=== PATIENT | female | born 1955 | race Caucasian/White ===

== ENCOUNTER 2016-11-05 08:36 | Emergency (ER) | payer OTHER ==
[~2016-11-05] VITALS: Wt 61.8 kg
[~2016-11-05 08:36] MED LIST: ALBU8.5H5 INH; ATOR10TA65 PO; CEPH500C PO; HYD25 PO; LISI20TA11 PO; METF-382 PO; RANI150T5 PO
[2016-11-05] MEDS ORDERED: traMADol 50 MG TAB PO ONE (09:00)
--- NOTE | 2016-11-05 09:13 | ERD ---
ER Documentation Chief Complaint Date/Time DATE: 11/05/16 TIME: 09:11 Chief Complaint right side non traumatic neckpain for the past 5 mos getting worse HPI 61-year-old female with history of thyroid disease comes to the ER with right- sided neck pain for the past 5 months. Patient's pain starts in the C5 region and radiates to the right anterior shoulder,, sharp, moderate, she is here with her daughter who states that she attends a lot of time knitting and keeps her legs. She has not had any trauma, fevers or neck stiffness or rashes associated. They do report some improvement with ibuprofen and Tylenol but because of her pain for the last 5 months he were looking to get a secondary evaluation. ROS All systems reviewed and are negative except as per history of present illness. Medications Home Meds Active Scripts Cephalexin* (Cephalexin*) 500 Mg Capsule, 500 MG PO TID , #21 CAP Prov:CR WOODARD MD 05/07/15 Ranitidine Hcl* (Ranitidine Hcl*) 150 Mg Tablet, 150 MG PO BID, #180 TAB Prov:CR WOODARD MD 05/07/15 Albuterol Sulfate* (Albuterol Sulfate* HFA) 8.5 Gm Hfa.aer.ad, 1-2 PUFF INH Q4 Y for SHORTNESS OF BREATH, #2 EA Prov:CR WOODARD MD 05/07/15 Reported Medications Hydrochlorothiazide* (Hydrochlorothiazide*) 25 Mg Tab, 25 MG PO DAILY, TAB 05/06/15 Atorvastatin Calcium (Atorvastatin Calcium) 10 Mg Tab, 10 MG PO HS, TAB 05/06/15 Metformin Hcl* (Metformin Hcl*) 500 Mg Tablet, 500 MG PO BID WITH MEALS, TAB 05/06/15 Lisinopril* (Lisinopril*) 20 Mg Tablet, 20 MG PO DAILY, TAB 05/06/15 Allergies Allergies: Coded Allergies: No Known Allergy (Unverified , 05/07/15) PMhx/Soc History of Surgery: Yes (VEINS STRIPPED) Anesthesia Reaction: No Hx Neurological Disorder: No Hx Respiratory Disorders: No Hx Cardiac Disorders: Yes (HIGH BP,HIGH CHOL) Hx Psychiatric Problems: No Hx Miscellaneous Medical Probl: No Hx Alcohol Use: No Hx Substance Use: No Hx Tobacco Use: No Physical Exam Vitals Vital Signs Date Time Temp Pulse Resp B/P Pulse Ox O2 Delivery O2 Flow Rate FiO2 11/05/16 08:39 98.0 74 20 148/71 100 Physical Exam General: Well-developed, well-nourished. The patient appears in no acute distress. HEENT: Head is normocephalic, atraumatic. No scleral icterus. Pupils are equal , round, and reactive. Oral mucous membranes are moist. No pharyngeal erythema. Neck: Supple. No thyroid masses, no thyromegaly, no lymphadenopathy. Tender at the C5 and reproducible pain in the right shoulder Lungs: Clear to auscultation. Normal air movement. Heart: Regular rate and rhythm. S1 and S2 are normal. No murmurs, gallops, or rubs. Abdomen: Soft, nontender, nondistended. Bowel sounds are normoactive. Extremities: No clubbing or cyanosis. Normal pulses. Moving extremities x 4. No weakness. Neurologic: Alert and oriented 3. No focal deficits. Skin: Normal turgor. No rash or lesions. Results 24 hrs Current Medications Medications (Trade) Dose Ordered Sig/Felicia Route PRN Reason Start Time Stop Time Status Last Admin Dose Admin Tramadol HCl (Ultram) 50 mg ONCE ONCE PO 11/05/16 09:00 11/05/16 09:01 11/05/16 09:23 PROCEDURE: XR Cervical Spine. CLINICAL INDICATION: Neck pain TECHNIQUE: AP, lateral, and open mouth views of the cervical spine were obtained. COMPARISON: None FINDINGS: The C1-C7 vertebral bodies are seen. The cervical lordosis is maintained. The vertebral body and disk space heights are normal. Multiple endplate and uncovertebral osteophytes are seen. No acute fracture or subluxation is seen. The atlantoaxial joint, odontoid process, and lateral masses are intact. No prevertebral soft tissue abnormality is seen. IMPRESSION: Mild multilevel discogenic disease of the cervical spine. RPTAT: HPNM Physician Benito Date Time Electronically viewed and signed by Kosta Wilson Physician on 11/05/2016 09 :51 Procedures/MDM ED course: She was given tramadol for pain. MDM: 60-year-old female comes in with neck pain is consistent with C5 radiculopathy. Differentials include fracture, subluxation, brachial plexus injury, neuropraxia, shoulder injury, rotator cuff tendinitis, calcific tendinosis and among others were part of my differential diagnosis. Patient has a normal x-ray, there is multi-level degenerative changes. She was advised to follow-up with her primary care physician and patient regarding physical therapy referral. Departure Diagnosis: Primary Impression: Neck pain Condition: Good REYMUNDO CHRISTOPHER PA-C Nov 05, 2016 09:13
--- NOTE | 2016-11-05 09:52 | RADRPT ---
PROCEDURE: XR Cervical Spine. CLINICAL INDICATION: Neck pain TECHNIQUE: AP, lateral, and open mouth views of the cervical spine were obtained. COMPARISON: None FINDINGS: The C1-C7 vertebral bodies are seen. The cervical lordosis is maintained. The vertebral body and d isk space heights are normal. Multiple endplate and uncovertebral osteophytes are seen. No acute fra cture or subluxation is seen. The atlantoaxial joint, odontoid process, and lateral masses are inta ct. No prevertebral soft tissue abnormality is seen. IMPRESSION: Mild multilevel discogenic disease of the cervical spine. RPTAT: HPNM Physician Benito Date Time Electronically viewed and signed by Physician Benito on 11/05/2016 09:51 /
[2016-11-05] MEDS ORDERED: TRAM50TA2 PO (10:29)
[2016-11-05 10:32] VITALS: BP 132/75; PULSE 76; RESP 20; TEMP 98.4
== END 2016-11-05 10:51 | disposition home or self-care (01) ==
LOC: FTE 08:36
DX: M54.2 Cervicalgia (principal); E11.9 Type 2 diabetes mellitus without complications; Z79.84 Long term (current) use of oral hypoglycemic drugs
CPT/HCPCS: 72040; Z7610

== ENCOUNTER 2017-09-02 08:07 | Emergency (ER) | payer SELFPAY ==
[~2017-09-02] VITALS: Ht 152.4 cm; Wt 56.0 kg
[~2017-09-02 08:07] MED LIST changes: -HYD25 PO; +HYDR25TA6 PO; -METF-382 PO; +METF500T4 PO; +TRAM50TA2 PO
[2017-09-02 08:11] VITALS: Ht 152.4 cm; Wt 56.0 kg
--- NOTE | 2017-09-02 08:22 | ERD ---
ER Documentation Chief Complaint Chief Complaint Complains of back pain x 3 day HPI 62y/o female with history of chronic neck pain presents to the ED c/o acute onset of upper back pain 2 weeks ago, worse on the right side. Pain is sharp, constant, 6/10, worsened by lateral rotation and bending forward. Treatment attempted: Tramadol with mild improvement of the symptoms. No recent history of trauma. Previous evaluations: According to the patient she was diagnosed with arthrosis. Currently, denies limb weakness, numbness or incontinence. No urinary symptoms. No headache, no fever, no chills, no rashes. ROS A 12-point review of systems was performed and negative other than presented in the history of present illness. SYSTEMIC symptoms: no fever, chills, no night sweats, no weight loss EYE symptoms: No blurred vision, no eye discharge OTOLARYNGEAL symptoms: No hearing loss. No ear pain, no sore throat CARDIOVASCULAR symptoms: No chest pain or discomfort, no palpitations. PULMONARY symptoms: No dyspnea, no cough, no wheezing. GASTROINTESTINAL symptoms: No abdominal pain, no nausea, no vomiting, no diarrhea MUSCULOSKELETAL symptoms: Per HPI NEUROLOGY symptoms: No confusion, no syncope, no numbness or tingling. SKIN: No rashes Medications Home Meds Active Scripts Lidocaine (Lidocaine) 1 Each Adh..patch, 1 EACH TP DAILY for PAIN LEVEL 6-10, # 14 Prov:JEANNIE SHAIKH MD 09/02/17 Prednisone* (Prednisone*) 20 Mg Tab, 20 MG PO DAILY for 5 Days, TAB Prov:JEANNIE SHAIKH MD 09/02/17 Baclofen* (Baclofen*) 10 Mg Tablet, 5 MG PO QHS for MUSCLE SPASMS, #20 TAB Prov:JEANNIE SHAIKH MD 09/02/17 Tramadol HCl (Tramadol HCl) 50 Mg Tablet, 50 MG PO Q4 Y for PAIN, #20 TAB Prov:REYMUNDO CHRISTOPHER PA-C 11/05/16 Cephalexin* (Cephalexin*) 500 Mg Capsule, 500 MG PO TID , #21 CAP Prov:CR WOODARD MD 05/07/15 Ranitidine Hcl* (Ranitidine Hcl*) 150 Mg Tablet, 150 MG PO BID, #180 TAB Prov:CR WOODARD MD 05/07/15 Albuterol Sulfate* (Albuterol Sulfate* HFA) 8.5 Gm Hfa.aer.ad, 1-2 PUFF INH Q4 Y for SHORTNESS OF BREATH, #2 EA Prov:CR WOODARD MD 05/07/15 Reported Medications Hydrochlorothiazide* (Hydrochlorothiazide*) 25 Mg Tab, 25 MG PO DAILY, TAB 05/06/15 Atorvastatin Calcium (Atorvastatin Calcium) 10 Mg Tab, 10 MG PO HS, TAB 05/06/15 Metformin Hcl* (Metformin Hcl*) 500 Mg Tablet, 500 MG PO BID WITH MEALS, TAB 05/06/15 Lisinopril* (Lisinopril*) 20 Mg Tablet, 20 MG PO DAILY, TAB 05/06/15 Allergies Allergies: Coded Allergies: No Known Allergy (Unverified , 05/07/15) PMhx/Soc History of Surgery: Yes (VEINS STRIPPED) Anesthesia Reaction: No Hx Neurological Disorder: No Hx Respiratory Disorders: No Hx Cardiac Disorders: Yes (HIGH BP,HIGH CHOL) Hx Psychiatric Problems: No Hx Miscellaneous Medical Probl: No Hx Alcohol Use: No Hx Substance Use: No Hx Tobacco Use: No Physical Exam Vitals Vital Signs Date Time Temp Pulse Resp B/P Pulse Ox O2 Delivery O2 Flow Rate FiO2 09/02/17 08:11 98.3 70 20 172/70 98 Physical Exam Patient is in no acute distress, vital signs stable. Alert and fully oriented. EYES: PERRLA, EOMI, Sclera and conjunctiva appear normal. EARS: Canals clear, tympanic membranes WNL THROAT: Normal oropharynx. NECK: Supple, No lymphadenopathy. Full ROM without pain or tenderness. HEART: RRR, no rubs, murmurs, clicks or gallops. LUNGS: Clear to auscultation. ABDOMEN: Soft, non-tender without masses or hepatosplenomegaly. EXTREMITIES: No edema bilaterally. BACK: Cervical: Normal inspection, no vertebral tenderness, bilateral muscle spasm, worse on the right side. Decreased range of motion for lateral rotation and flexion. NEURO: Cranial nerves grossly intact, no motor or sensory deficit Results 24 hrs Current Medications Medications (Trade) Dose Ordered Sig/Felicia Route PRN Reason Start Time Stop Time Status Last Admin Dose Admin Ketorolac Tromethamine (Toradol) 30 mg ONCE STAT IM 09/02/17 08:30 09/02/17 08:32 DC 09/02/17 08:37 Procedures/MDM Upper back pain: no red flags. Differential diagnosis include but not limited to : Neck sprain/strain, herniated disk, muscle spasm, radiculopathy. Neurovascular exam grossly intact. no clinical findings suggestive of acute infectious process, no acute deformity, no edema, no rashes. Physical examination and clinical presentation consistent most likely with acute on chronic back pain with sciatica. During the ED course the patient received treatment with Toradol IM presenting overall improvement of the symptoms. Results and clinical impression discussed with recent who agrees with management. The patient is stable to be treated outpatient and will be discharged home with recommendations and close monitoring The patient was instructed to follow up with the primary care provider in the next 48h. If symptoms persist, worsen or new symptoms develop, then patient should return to the ED immediately. Instructions explained and given to patient in Japanese with acknowledgment and demonstrated understanding. Disclaimer: Inadvertent spelling and grammatical errors are likely due to EHR/ dictation software use and do not reflect on the overall quality of patient care. Also, please note that the electronic time recorded on this note does not necessarily reflect the actual time of the patient encounter. Departure Diagnosis: Primary Impression: Chronic neck pain Additional Impression: Acute muscle stiffness of neck Condition: Stable Additional Instructions: Call your primary care doctor TOMORROW for an appointment during the next 1-2 days. See the doctor sooner or return here if your condition worsens before your appointment time. Thank you very much for allowing us to participate in your care. Your health and safety is our top priority at [facility]. Have prescriptions filled and follow precisely the directions on the label. Follow-up with primary care provider during the next 4 days and bring all the information and medications prescribed. If illness has not improved in 2 days, then make an appointment with primary care provider. If the provider is unavailable, return to the Emergency Department immediately. JEANNIE SHAIKH MD Sep 02, 2017 08:22
[2017-09-02] MEDS ORDERED: KETOROLAC 30 MG INJ IM STA (08:30)
[2017-09-02] MEDS ORDERED: LIDO700A45 TP (08:46)
[2017-09-02] MEDS ORDERED: PRED20TA PO (08:46)
[2017-09-02] MEDS ORDERED: BACL10TA PO (08:46)
== END 2017-09-02 09:29 | disposition home or self-care (01) ==
LOC: FTE 08:07
DX: M54.2 Cervicalgia (principal)
CPT/HCPCS: 96372

== ENCOUNTER 2018-01-27 07:24 | Emergency (ER) | END 2018-01-27 09:20 | disposition home or self-care (01) ==

== ENCOUNTER 2018-04-17 09:35 | Day surgery (SDC) | END 2018-04-17 11:55 | disposition home or self-care (01) ==

== ENCOUNTER 2018-06-03 05:45 | Inpatient (IN) | END 2018-06-04 14:10 | disposition home or self-care (01) | DRG 624 ==